=== PATIENT | male | born 1935 | race Caucasian/White ===

== ENCOUNTER 2017-10-30 08:51 | Day surgery (SDC) | payer MEDICARE, OTHER ==
[~2017-10-30] VITALS: Ht 180.3 cm; Wt 106.6 kg
[~2017-10-30 08:51] MED LIST: ACET80 PO; AMLO5 PO; ATOR20 PO; CALMAGZIN PO; Keflex500 MG PO; LEVSOD125 PO; LOSARTAN-HCTZ1 EAC2 PO; METF500C PO; METO50ER PO; WARF7.5 PO
[2017-10-30] MEDS ORDERED: NAPR220 PO (09:48)
[2017-10-30 10:07] LABS: International Normalized Ratio 1.23; Prothrombin Time Results 12.9 Sec (9.7-11.5)
[2018-05-08] MEDS ORDERED: Calcium-Mag-Zi1 EACH PO (15:10)
[2018-05-16] MEDS ORDERED: WARF2 PO (07:05)
[2018-05-17] MEDS ORDERED: OXYC5 PO (08:44)
[2018-05-17] MEDS ORDERED: PROM25 PO (08:45)
== END 2017-10-30 12:52 | disposition home or self-care (01) ==
LOC: ORSCSDS 08:51
PROVIDERS: Orthopaedic Surgery
PROC: 0SBD4ZZ Excision of Left Knee Joint, Percutaneous Endoscopic Approach (ICD-10-PCS; principal; 2017-10-30 10:30)
DX: S83.242A Other tear of medial meniscus, current injury, left knee, initial encounter (principal); M17.12 Unilateral primary osteoarthritis, left knee; I48.91 Unspecified atrial fibrillation; Z79.01 Long term (current) use of anticoagulants; I10 Essential (primary) hypertension; Z87.891 Personal history of nicotine dependence; E11.9 Type 2 diabetes mellitus without complications; E78.00 Pure hypercholesterolemia, unspecified; Z79.899 Other long term (current) drug therapy
CPT/HCPCS: 82947; 85610; J0171; J0690; J1100; J1885; J2250; J2405; J3010; J7120

== ENCOUNTER 2018-09-08 22:12 | Emergency (ER) | payer MEDICARE, OTHER ==
[~2018-09-08] VITALS: Ht 180.3 cm; Wt 99.8 kg
[~2018-09-08 22:12] MED LIST changes: +Calcium-Mag-Zi1 EACH PO; +NAPR220 PO; +OXYC5 PO; +PROM25 PO; +WARF2 PO
== END 2018-09-08 23:05 | disposition home or self-care (01) ==
LOC: ER 22:12
DX: R04.0 Epistaxis (principal); Z79.899 Other long term (current) drug therapy; Z79.01 Long term (current) use of anticoagulants; I48.91 Unspecified atrial fibrillation; I10 Essential (primary) hypertension; E03.9 Hypothyroidism, unspecified; E11.9 Type 2 diabetes mellitus without complications; E78.00 Pure hypercholesterolemia, unspecified; Z87.891 Personal history of nicotine dependence
CPT/HCPCS: 30901; 99282-25

== ENCOUNTER 2018-09-09 13:46 | Emergency (ER) | payer MEDICARE, OTHER ==
[~2018-09-09] VITALS: Ht 180.3 cm; Wt 100.7 kg
== END 2018-09-09 14:55 | disposition home or self-care (01) ==
LOC: ER 13:46
DX: R04.0 Epistaxis (principal); I48.2 Chronic atrial fibrillation; I10 Essential (primary) hypertension; E03.9 Hypothyroidism, unspecified; E11.9 Type 2 diabetes mellitus without complications; E78.00 Pure hypercholesterolemia, unspecified; Z79.01 Long term (current) use of anticoagulants; Z79.899 Other long term (current) drug therapy; Z79.84 Long term (current) use of oral hypoglycemic drugs; Z87.891 Personal history of nicotine dependence
CPT/HCPCS: 99283

== ENCOUNTER 2021-11-24 00:19 | Day surgery (SDC) | payer MEDICARE, OTHER | END 2021-11-24 23:36 | disposition home or self-care (01) | LOC: WOUND 00:19 | DX: E11.622 Type 2 diabetes mellitus with other skin ulcer (principal); I87.311 Chronic venous hypertension (idiopathic) with ulcer of right lower extremity; L97.819 Non-pressure chronic ulcer of other part of right lower leg with unspecified severity; I87.2 Venous insufficiency (chronic) (peripheral); E11.51 Type 2 diabetes mellitus with diabetic peripheral angiopathy without gangrene; I48.91 Unspecified atrial fibrillation; I10 Essential (primary) hypertension; Z87.891 Personal history of nicotine dependence; Z79.01 Long term (current) use of anticoagulants; E78.5 Hyperlipidemia, unspecified; E03.9 Hypothyroidism, unspecified; Z96.652 Presence of left artificial knee joint | CPT/HCPCS: G0463 ==

== ENCOUNTER 2021-12-01 00:05 | Day surgery (SDC) | payer MEDICARE, OTHER | END 2021-12-01 23:22 | disposition home or self-care (01) | LOC: WOUND | DX: E11.622 Type 2 diabetes mellitus with other skin ulcer (principal); I87.311 Chronic venous hypertension (idiopathic) with ulcer of right lower extremity; L97.812 Non-pressure chronic ulcer of other part of right lower leg with fat layer exposed; I87.2 Venous insufficiency (chronic) (peripheral); I73.9 Peripheral vascular disease, unspecified | CPT/HCPCS: A9270 ==